=== PATIENT | female | born 1935 | race Caucasian/White ===

== ENCOUNTER 2017-02-04 11:28 | Emergency (ER) | payer MEDICAID, MEDICARE, OTHER ==
[~2017-02-04] VITALS: Ht 165.1 cm; Wt 65.0 kg
[~2017-02-04 11:28] MED LIST: AMLO2.5T OR; CARV3.125 PO; CO Q100C9 PO; ECASA PO; GABA400 PO; MEMA5 PO; PRAV40TA2 PO; RANI150 PO
[2017-02-04 11:32] VITALS: BP 195/79; PULSE 57; RESP 16; TEMP 97.8; O2SAT 98
[2017-02-04] MEDS ORDERED: [UNRECOGNIZED DRUG - OTHER] PO (11:50)
[2017-02-04] MEDS ORDERED: EZET1TAB8 PO (11:50)
[2017-02-04] MEDS ORDERED: AMLO5TAB2 PO (11:50)
[2017-02-04] MEDS ORDERED: RANI150T PO (11:50)
[2017-02-04] MEDS ORDERED: RIVA1DIS3 T-DERMAL (11:50)
[2017-02-04] MEDS ORDERED: METO50TA11 PO (11:50)
[2017-02-04] MEDS ORDERED: MEMA28CA PO (11:50)
[2017-02-04] MEDS ORDERED: SODIUM CHLORID 0.9% 500 ML INJ 500 ML IV ONE (12:45)
[2017-02-04] MEDS ORDERED: ONDANSETRON HCL 4 MG/2 ML VIAL IV PUSH ONE (12:45)
[2017-02-04 12:48] LABS: AUTOMATED NEUTROPHIL # 10.1 TH/MM3 (1.8-7.7); BASOPHIL # 0.5 TH/MM3 (0-0.2); BASOPHIL % 3.9 % (0.0-2.0); EOSINOPHIL # 0.1 TH/MM3 (0-0.4); EOSINOPHIL % 0.7 % (0.0-4.0); HEMATOCRIT 45.5 % (35.0-46.0); LYMPH % 12.9 % (9.0-44.0); LYMPHOCYTE # 1.7 TH/MM3 (1.0-4.8); MEAN CELL VOLUME 91.2 FL (80.0-100.0); MEAN CORPUSCULAR HEMOGLOBIN 29.5 PG (27.0-34.0); MEAN CORPUSCULAR HGB CONC 32.3 % (32.0-36.0); MONO % 3.7 % (0.0-8.0); NEUT % 78.8 % (16.0-70.0); PLATELET COUNT 223 TH/MM3 (150-450); RED BLOOD COUNT 4.99 MIL/MM3 (4.00-5.30); RED CELL DISTRIBUTION WIDTH 13.9 % (11.6-17.2); WHITE BLOOD COUNT 12.9 TH/MM3 (4.0-11.0)
[2017-02-04 12:55] LABS: CHLORIDE 104 MEQ/L (98-107); POTASSIUM 3.7 MEQ/L (3.5-5.1); SODIUM (NA) 143 MEQ/L (136-145)
[2017-02-04 12:56] LABS: HEMO FLAGS DIFF FINAL
--- NOTE | 2017-02-04 12:57 | PD ---
HPI Chief Complaint: GI Complaint Time Seen by Provider: 12:02 Travel History International Travel<30 days: No Contact w/Intl Traveler<30days: No Traveled to known affect area: No History of Present Illness HPI This is an 81-year-old female who presents to the emergency department with nausea vomiting and diarrhea that's been going on for 2 days. She says yesterday she went out to eat. She shared her meal with her daughter but then drank a Pepsi that her daughter didn't drink and after that she started to have some loose stools and had several episodes of vomiting. Patient woke up in the middle the night and had persistent vomiting, constant, moderate severity. She denies any associated abdominal pain or fevers. She says her last bowel movement was yesterday and was loose. She's had no blood in her bowel movements. Appendectomy, hysterectomy and a partial colectomy in the past but her daughter says she is quite healthy and she doesn't usually get sick. PFSH Past Medical History Autoimmune Disease: No Heart Rhythm Problems: Yes Cancer: No Cardiovascular Problems: Yes High Cholesterol: Yes Coronary Artery Disease: Yes Dementia: Yes Diabetes: No Diminished Hearing: No Endocrine: No GERD: Yes Genitourinary: No Hypertension: Yes Musculoskeletal: Yes Neurologic: Yes (RUE TREMOR) Psychiatric: No Reproductive: No Respiratory: No Immunizations Current: Yes PNEUMOCCOCAL Vaccine (Year): 2010 Menopausal: Yes Past Surgical History Abdominal Surgery: Yes (COLON RESECTION) Appendectomy: Yes Eye Surgery: Yes Genitourinary Surgery: Yes Hysterectomy: Yes Other Surgery: Yes (FACIAL COSMETIC SURGERY) Social History Alcohol Use: No Tobacco Use: No (FORMER) Substance Use: No Allergies-Medications (Allergen,Severity, Reaction): Coded Allergies: No Known Allergies (Verified , 02/04/17) Reported Meds & Prescriptions Reported Meds & Active Scripts Active Reported l-Methyl-Mc (l-Deouyqzvszvf-Qrolodiqxo-Riboflav-Pyridoxin) 6-1-50-5 Mg Tab 1 Tab PO DAILY Namenda Xr (Memantine) 28 Mg Caper 28 Mg PO DAILY Ezetimibe 10 Mg Tab 10 Mg PO DAILY Metoprolol Succinate ER 24 HR (Metoprolol Succinate) 50 Mg Tab 50 Mg PO DAILY Ranitidine (Ranitidine HCl) 150 Mg Tab 150 Mg PO DAILY Rivastigmine Patch (Rivastigmine) 13.3 mg/24 hr Patch 1 Patch T-DERMAL DAILY Amlodipine (Amlodipine Besylate) 5 Mg Tab 5 Mg PO DAILY Review of Systems Except as stated in HPI: all other systems reviewed are Neg Physical Exam Narrative GENERAL: Frail elderly female in no acute distress. SKIN: Focused skin assessment warm and dry. HEAD: Atraumatic. Normocephalic. EYES: Pupils equal and round. No injection or drainage. ENT: Dry mucous membranes. NECK: Trachea midline. CARDIOVASCULAR: Regular rate and rhythm. No murmur appreciated. RESPIRATORY: Clear to auscultation. Breath sounds equal bilaterally. GASTROINTESTINAL: Abdomen soft, tender to palpation in the right lower quadrant with no rebound or guarding. MUSCULOSKELETAL: No obvious deformities. NEUROLOGICAL: Awake and alert. No obvious cranial nerve deficits. Moving all extremities. PSYCHIATRIC: Appropriate mood and affect; insight and judgment normal. Data Data Last Documented VS Vital Signs Date Time Temp Pulse Resp B/P Pulse Ox O2 Delivery O2 Flow Rate FiO2 02/04/17 14:35 61 16 166/78 100 Room Air 02/04/17 11:32 97.8 Orders Complete Blood Count With Diff (02/04/17 12:02) Comprehensive Metabolic Panel (02/04/17 12:02) Lactic Acid (02/04/17 12:02) Lipase (02/04/17 12:02) ^ Insert Iv (02/04/17 12:02) Electrocardiogram (02/04/17 ) Troponin I (02/04/17 12:15) Ct Abd/Pel W Iv Contrast(Rout) (02/04/17 ) Sodium Chlorid 0.9% 500 Ml Inj (Ns 500 M (02/04/17 12:45) Ondansetron Inj (Zofran Inj) (02/04/17 12:45) Urinalysis - C+S If Indicated (02/04/17 13:09) Iohexol 350 Inj (Omnipaque 350 Inj) (02/04/17 13:30) Cath For Specimen (02/04/17 13:45) Labs Laboratory Tests Test 02/04/17 02/04/17 12:30 14:00 White Blood Count 12.9 TH/MM3 Red Blood Count 4.99 MIL/MM3 Hemoglobin 14.7 GM/DL Hematocrit 45.5 % Mean Corpuscular Volume 91.2 FL Mean Corpuscular Hemoglobin 29.5 PG Mean Corpuscular Hemoglobin 32.3 % Concent Red Cell Distribution Width 13.9 % Platelet Count 223 TH/MM3 Mean Platelet Volume 8.8 FL Neutrophils (%) (Auto) 78.8 % Lymphocytes (%) (Auto) 12.9 % Monocytes (%) (Auto) 3.7 % Eosinophils (%) (Auto) 0.7 % Basophils (%) (Auto) 3.9 % Neutrophils # (Auto) 10.1 TH/MM3 Lymphocytes # (Auto) 1.7 TH/MM3 Monocytes # (Auto) 0.5 TH/MM3 Eosinophils # (Auto) 0.1 TH/MM3 Basophils # (Auto) 0.5 TH/MM3 CBC Comment DIFF FINAL Differential Comment Sodium Level 143 MEQ/L Potassium Level 3.7 MEQ/L Chloride Level 104 MEQ/L Carbon Dioxide Level 30.6 MEQ/L Anion Gap 8 MEQ/L Blood Urea Nitrogen 16 MG/DL Creatinine 0.99 MG/DL Estimat Glomerular Filtration 54 ML/MIN Rate Random Glucose 115 MG/DL Lactic Acid Level 1.5 mmol/L Calcium Level 9.0 MG/DL Total Bilirubin 0.7 MG/DL Aspartate Amino Transf 15 U/L (AST/SGOT) Alanine Aminotransferase 19 U/L (ALT/SGPT) Alkaline Phosphatase 76 U/L Troponin I LESS THAN 0.02 NG/ML Total Protein 7.2 GM/DL Albumin 3.4 GM/DL Lipase 224 U/L Urine Collection Type CLEAN CATCH Urine Color YELLOW Urine Turbidity CLEAR Urine pH 7.0 Urine Specific [place] GREATER THAN 1.035 Urine Protein NEG mg/dL Urine Glucose (UA) NEG mg/dL Urine Ketones NEG mg/dL Urine Occult Blood TRACE Urine Nitrite NEG Urine Bilirubin NEG Urine Leukocyte Esterase NEG Urine RBC 0-3 /hpf Urine WBC 0-2 /hpf Urine Squamous Epithelial 0-3 /hpf Cells Microscopic Urinalysis Comment CULT NOT INDICATED MDM Medical Decision Making Medical Screen Exam Complete: Yes Emergency Medical Condition: Yes Interpretation(s) EKG: Sinus bradycardia with no ST changes Mild leukocytosis Electrolytes are reassuring Urinalysis is negative for infection Troponin is normal Last 24 hours Impressions Abdomen/Pelvis CT 02/04/17 0000 Signed Impressions: Service Date/Time: Saturday, February 04, 2017 13:11 - CONCLUSION: 1. 2 cm gallstone within the gallbladder. 2. Atrophic left kidney. 3. Advanced atherosclerotic plaquing in the abdominal aorta. 4. No findings to indicate a bowel obstruction identified. Isac Dean MD Differential Diagnosis Gastroenteritis, urinary tract infection, bowel obstruction, myocardial infarction, pancreatitis Narrative Course This is an 81-year-old female who presents to the emergency department with some loose stools and multiple episodes of vomiting. Here in the emergency department she appears well and has a benign abdominal exam. EKG was checked which was reassuring. Labs were obtained which were all unremarkable with the exception of a mild leukocytosis. CT abdomen and pelvis demonstrates no acute surgical pathology. I think she is appropriate for outpatient symptomatic management for likely gastroenteritis. Diagnosis Primary Impression: Gastroenteritis Patient Instructions: General Instructions Additional Instructions: If you develop lightheadedness, dizziness, persistent vomiting, inability to eat , or severe abdominal pain return to the emergency department. Followup with your primary care physician in 2-3 days if your symptoms have not resolved. Wash your hands aggressively after using the restroom as to not spread your illness to others. Do not return to work until your symptoms have resolved. Take Zofran as needed for nausea. Med/Other Pt SpecificInfo: Prescription(s) given Scripts Ondansetron Odt (Zofran Odt)4 Mg Tab4 Mg SL Q6HR PRN (Nausea/Vomiting) #15 TAB Prov:Mary Powell MD 02/04/17 Disposition: 01 DISCHARGE HOME Condition: Stable Mary Powell MD Feb 04, 2017 12:57
[2017-02-04 13:00] VITALS: BP 185/78; PULSE 65; RESP 16; O2SAT 100
[2017-02-04 13:01] LABS: ANION GAP 8 MEQ/L (5-15); BICARBONATE 30.6 MEQ/L (21.0-32.0); BLOOD UREA NITROGEN 16 MG/DL (7-18)
[2017-02-04 13:03] LABS: ALT (GPT) 19 U/L (10-53)
[2017-02-04 13:04] LABS: AST (GOT) 15 U/L (15-37); GLOMERULAR FILTRATION RATE 54 ML/MIN (>89)
[2017-02-04 13:05] LABS: TOTAL BILIRUBIN ADULT 0.7 MG/DL (0.2-1.0)
[2017-02-04 13:06] LABS: ALKALINE PHOSPHATASE 76 U/L (45-117)
[2017-02-04] MEDS ORDERED: IOHEXOL 350 MG/ML 10 ML VIAL (for RAD DIAG) IV ONE (13:30)
--- NOTE | 2017-02-04 13:36 | RADHPO ---
EXAM DATE/TIME: 02/04/2017 13:11 [facility] COMPARISON: CT BRAIN W/O CONTRAST, February 24, 2013, 13:21. INDICATIONS : Nausea, vomiting and diarrhea. IV CONTRAST: 75 cc Omnipaque 350 (iohexol) IV ORAL CONTRAST: No oral contrast ingested. RADIATION DOSE: 8.20 CTDIvol (mGy) MEDICAL HISTORY : Hypertension. Gastroesophageal reflux disease. SURGICAL HISTORY : Appendectomy. Hysterectomy.Colon resection. ENCOUNTER: Initial ACUITY: 2 days PAIN SCALE: 0/10 LOCATION: abdomen/pelvis TECHNIQUE: Volumetric scanning of the abdomen and pelvis was performed. Using automated exposure control and ad justment of the mA and/or kV according to patient size, radiation dose was kept as low as reasonably achievable to obtain optimal diagnostic quality images. FINDINGS: Portion of the lung base visualized is clear. The appearance of the liver, spleen, pancreas, adrenal glands and right kidney is within normal limit s. The left kidney is quite atrophic with a 4.5 cm simple cyst. There is a 2.7 x 2.4 cm stone within the gallbladder. The visualized loops of small and large bowel the upper abdomen are unremarkable. The anterior abdomi nal wall is intact. There is no retroperitoneal lymphadenopathy. There is advanced atherosclerotic plaquing in the abdomi nal aorta. There is no free fluid within the pelvis. No iliac or inguinal adenopathy is seen. The patient is pos t hysterectomy. The visualized bony structures demonstrated facet degenerative changes but are otherwise intact. CONCLUSION: 1. 2 cm gallstone within the gallbladder. 2. Atrophic left kidney. 3. Advanced atherosclerotic plaquing in the abdominal aorta. 4. No findings to indicate a bowel obstruction identified. Isac Dean MD on February 04, 2017 at 13:32 Board Certified Radiologist. This report was verified electronically.
[2017-02-04 14:32] LABS: BLOOD, URINE TRACE (NEG); GLUCOSE,URINE NEG (NEG); KETONE, URINE NEG (NEG); NITRITE,URINE NEG (NEG)
[2017-02-04 14:35] VITALS: BP 166/78; PULSE 61; RESP 16; O2SAT 100
[2017-02-04 15:04] LABS: METHOD OF COLLECTION CLEAN CATCH; URINE COLOR YELLOW (YELLW/STRAW)
[2017-02-04 15:05] LABS: RBC, URINE 0-3 /hpf (0-3); SQUAMOUS EPITHELIAL CELL URINE 0-3 /hpf (0-5); WBC, URINE 0-2 /hpf (0-5)
[2017-02-04 15:06] LABS: COMMENT (UR) CULT NOT INDICATED; CULTURE IF INDICATED CULT NOT INDICATED
[2017-02-04] MEDS ORDERED: ZOFR4TAB3 SL (15:13)
--- NOTE | 2017-02-05 19:58 | EKG ---
Date Performed: 02/04/2017 Time Performed: 12:20:50 PTAGE: 81 years EKG: Sinus bradycardia Normal ECG except for rate PREVIOUS TRACING : 07/05/2014 09.09 Compared to prior tracing no significant change DOCTOR: Marcelino Dc Interpretating Date/Time 02/05/2017 19:57:51
== END 2017-02-04 15:43 | disposition home or self-care (01) ==
LOC: PHED 11:28
DX: K52.9 Noninfective gastroenteritis and colitis, unspecified (principal); R00.1 Bradycardia, unspecified; E78.00 Pure hypercholesterolemia, unspecified; I25.10 Atherosclerotic heart disease of native coronary artery without angina pectoris; F03.90 Unspecified dementia, unspecified severity, without behavioral disturbance, psychotic disturbance, mood disturbance, and anxiety; I10 Essential (primary) hypertension; K21.9 Gastro-esophageal reflux disease without esophagitis; Z87.891 Personal history of nicotine dependence
CPT/HCPCS: 74177; 80053; 81001; 83605; 83690; 84484; 85025; 93005; 96360; 99285; J7040; Q9967